=== PATIENT | male | born 1950 | race Caucasian/White ===

== ENCOUNTER 2021-11-01 08:35 | Outpatient (CLI) | payer MEDICARE ==
[2021-11-01 17:08] LABS: ALBUMIN 4.1 g/dL (3.2-5.5); ALBUMIN/GLOBULIN RATIO 1.4 (1.0-2.2); ALKALINE PHOSPHATASE 56 IU/L (42-121); ALT ALANINE AMINOTRANSFERASE 47 IU/L (10-60); AST ASPARTATE AMINOTRANSFERASE 31 IU/L (10-42); BILIRUBIN,TOTAL 1.1 mg/dL (0.2-1.0); BUN - BLOOD UREA NITROGEN 31 mg/dL (6-20); CALCIUM 9.2 mg/dL (8.5-10.3); CARBON DIOXIDE - CO2 25 mmol/L (21-32); CHLORIDE 99 mmol/L (101-111); CHOL/HDL RATIO 5.5 (<5.0); CHOLESTEROL 169 mg/dL; CREATININE 1.7 mg/dL (0.6-1.2); GFR - MDRD 40 (>89); GLUCOSE 89 mg/dL (70-100); HDL CHOLESTEROL 31 mg/dL; LDL CHOLESTEROL,CALCULATED 106 mg/dL; LDL/HDL RATIO 3.4 (<3.6); POTASSIUM 4.1 mmol/L (3.5-5.0); SODIUM 134 mmol/L (135-145); TRIGLYCERIDES 162 mg/dL; VLDL CHOLESTEROL 32 mg/dL
== END 2021-11-01 08:36 | disposition home or self-care (01) ==
LOC: LAB.S 08:35
PROVIDERS: ATTEND Family Medicine
DX: I10 Essential (primary) hypertension (principal); R97.20 Elevated prostate specific antigen [PSA]
CPT/HCPCS: 36415; 80053; 80061; 83721; 84153

== ENCOUNTER 2023-10-22 08:00 | Outpatient (CLI) | payer MEDICARE ==
--- NOTE | 2023-10-22 15:37 | XRAY Report ---
PROCEDURE: Knee 3V RT INDICATIONS: SPRAIN OF RIGHT KNEE TECHNIQUE: 3 views of the knee(s) were acquired. COMPARISON: None. FINDINGS: Bones: Moderate degenerative changes. Tiny lucency in the medial tibial plateau, seen on frontal view , possibly a geode. Soft tissues: Moderate joint effusion. Dystrophic and vascular calcifications are seen. IMPRESSION: Alignment is within normal limits. There are moderate degenerative changes. Moderate joint effusion. A tiny lucency at the medial tibial plateau on frontal view is possibly a geode. Consider further cross-sectional imaging if there is high concern for acute injury. Reviewed by: Rico Moise MD on 10/22/2023 3:35 PM PST Approved by: Rico Moise MD on 10/22/2023 3:35 PM PST Station ID: [id number]
== END 2023-10-22 23:59 | disposition home or self-care (01) ==
LOC: DI.S 08:00
PROVIDERS: ATTEND Physician Assistant Medical
DX: S83.8X1A Sprain of other specified parts of right knee, initial encounter (principal); M17.11 Unilateral primary osteoarthritis, right knee; M25.461 Effusion, right knee